=== PATIENT | male | born 1955 | race Caucasian/White ===

== ENCOUNTER 2016-07-02 11:46 | Emergency (ER) | payer OTHER | END 2016-07-02 13:14 | disposition home or self-care (01) | LOC: ER1 11:46 | DX: S16.1XXA Strain of muscle, fascia and tendon at neck level, initial encounter (principal); M77.8 Other enthesopathies, not elsewhere classified; I10 Essential (primary) hypertension; F17.210 Nicotine dependence, cigarettes, uncomplicated; Z79.899 Other long term (current) drug therapy; X58.XXXA Exposure to other specified factors, initial encounter | CPT/HCPCS: 72125; 96372; 99283; J1100; J1885 ==

== ENCOUNTER → 2016-07-10 | Outpatient (CLI) | payer OTHER | LOC: KOH-I 15:08 | DX: M54.2 Cervicalgia (principal); Z72.0 Tobacco use; M25.78 Osteophyte, vertebrae; M50.223 Other cervical disc displacement at C6-C7 level; R90.89 Other abnormal findings on diagnostic imaging of central nervous system; M99.71 Connective tissue and disc stenosis of intervertebral foramina of cervical region | CPT/HCPCS: 72141 ==